=== PATIENT | male | born 1940 | race Caucasian/White ===

== ENCOUNTER 2016-10-13 21:27 | Emergency (ER) | payer MEDICARE, BC ==
[~2016-10-13] VITALS: Ht 188 cm; Wt 92.2 kg
[~2016-10-13 21:27] MED LIST: FEXO180 OR; LIBRAX PO; LOSA50TA PO; METO50CR PO; OMEP20TA PO; PERC5TAB12 PO; TAMS0.4C67 PO; ZOFR4TAB3 SL
[2016-10-13 21:36] VITALS: BP 171/86; PULSE 62; RESP 18; TEMP 98; O2SAT 18; O2SAT 95
[2016-10-13] MEDS ORDERED: PRAV80TA2 PO (22:09)
[2016-10-13] MEDS ORDERED: ASPI81CH CHEW (22:09)
[2016-10-13] MEDS ORDERED: AMLO5TAB2 PO (22:09)
[2016-10-13] MEDS ORDERED: FAMOTIDINE 20 MG/2 ML VIAL IV PUSH ONE (22:15)
[2016-10-13] MEDS ORDERED: ONDANSETRON HCL 4 MG/2 ML VIAL IV ONE (22:15)
[2016-10-13] MEDS ORDERED: SODIUM CHLOR 0.9% 1000 ML INJ 1,000 ML IV SCH (22:15)
[2016-10-13] MEDS ORDERED: PANTOPRAZOLE SODIUM 40 MG VIAL IVP ONE (22:15)
[2016-10-13] MEDS ORDERED: SODIUM CHLORIDE 0.9% FLUSH 10 ML FLUSH IV FLUSH PRN (22:15)
[2016-10-13] MEDS ORDERED: HYDROmorphone HCL PF 1 MG/ML VIAL IVP ONE (22:15)
--- NOTE | 2016-10-13 22:15 | PD ---
HPI Chief Complaint: GI Complaint Time Seen by Provider: 22:10 Travel History International Travel<30 days: No Contact w/Intl Traveler<30days: No Traveled to known affect area: No History of Present Illness HPI The patient is a 75-year-old male nausea and vomiting since 2:00 this morning. The patient gets frequent episodes of this and often needs hospitalization. He is from [place] and states she has been worked up extensively there for this problem but nothing has been found. 2 months ago they did a cholecystectomy thinking that this might stop these episodes. He denies any fever. He denies any dysuria, frequency or urgency. He denies vomiting any blood. He does have midline epigastric pain from the vomiting. He states they usually give him Zofran, Reglan and Dilaudid and this stops the cycle. He still has his appendix. PFSH Past Medical History AAA: Yes Arthritis: No Asthma: No Autoimmune Disease: No Heart Rhythm Problems: No Cardiovascular Problems: Yes (HX OF CHEST PAIN) High Cholesterol: Yes Chemotherapy: No Chest Pain: Yes Congestive Heart Failure: No COPD: No Cerebrovascular Accident: No Diabetes: No Endocrine: No Gastrointestinal Disorders: Yes (GALLSTONES) GERD: Yes Gout: Yes Genitourinary: No Hiatal Hernia: No Hypertension: Yes Immune Disorder: No Implanted Vascular Access Dvce: Yes Kidney Stones: Yes (TX FOR PREVENTING KIDNEY STONES) Musculoskeletal: No Neurologic: No Psychiatric: No Reproductive: No Respiratory: No Immunizations Current: Yes Migraines: No Radiation Therapy: No Renal Failure: No Seizures: No Sickle Cell Disease: No Sleep Apnea: No Thyroid Disease: No Ulcer: No Past Surgical History Abdominal Surgery: Yes (COLON RESCTION) AICD: No Arteriovenous Shunt: No Body Medical Devices: NUTS AND BOLTS IN BACK AND SPINE Cardiac Surgery: Yes (AAA REPAIR) Ear Surgery: No Endocrine Surgery: No Eye Surgery: No Genitourinary Surgery: No Gynecologic Surgery: No Insulin Pump: No Joint Replacement: No Oral Surgery: No Pacemaker: No Thoracic Surgery: No Other Surgery: Yes (AORTIC ANEURYSM) Social History Alcohol Use: Yes (2 DRINKS PER NIGHT(DENIES)) Tobacco Use: No Substance Use: No Allergies-Medications (Allergen,Severity, Reaction): Coded Allergies: levofloxacin (Verified Allergy, Severe, Anaphylaxis, 10/13/16) Reported Meds & Prescriptions Reported Meds & Active Scripts Active Prochlorperazine Maleate 10 Mg Tab 10 Mg PO Q6H PRN Flomax (Tamsulosin HCl) 0.4 Mg Cap 0.4 Mg PO DAILY Reported Librax (Chlordiazepoxide/Clidinium) 5-2.5 Mg Cap 1 Cap PO DAILY Pravastatin 80 Mg Tab 80 Mg PO DAILY Aspirin 81 Mg Chew 81 Mg CHEW DAILY Amlodipine (Amlodipine Besylate) 5 Mg Tab 5 Mg PO DAILY Omeprazole 20 mg (Omeprazole) 20 Mg Tab 20 Mg PO DAILY Zofran ODT (Ondansetron HCl) 4 Mg Tab 8 Mg SL BID PRN FOR NAUSEA/VOMITING Metoprolol Succinate ER 50 mg (Metoprolol Succinate) 50 Mg Tab 100 Mg PO DAILY Libby Allergy (Fexofenadine Hydrochloride) 180 Mg Tab 180 Mg OR DAILY Losartan Potassium 50 MG (Losartan Potassium) 50 Mg Tab 50 Mg PO DAILY Review of Systems Except as stated in HPI: all other systems reviewed are Neg Physical Exam Narrative GENERAL: The patient is moderately dehydrated appearing, alert, oriented 3 in moderate apparent distress with his vomiting. His vital signs show blood pressure 171/86 but are otherwise normal. SKIN: Focused skin assessment warm/dry. HEAD: Atraumatic. Normocephalic. EYES: Pupils equal and round. No scleral icterus. No injection or drainage. ENT: No nasal bleeding or discharge. Mucous membranes pink and moist. NECK: Trachea midline. No JVD. CARDIOVASCULAR: Regular rate and rhythm. No murmur appreciated. RESPIRATORY: No accessory muscle use. Clear to auscultation. Breath sounds equal bilaterally. GASTROINTESTINAL: Abdomen soft, with tenderness to direct palpation in the midline epigastrium, nondistended. Hepatic and splenic margins not palpable. No guarding or rebound is present. MUSCULOSKELETAL: No obvious deformities. No clubbing. No cyanosis. No edema. NEUROLOGICAL: Awake and alert. No obvious cranial nerve deficits. Motor grossly within normal limits. Normal speech. PSYCHIATRIC: Appropriate mood and affect; insight and judgment normal. Data Data Last Documented VS Vital Signs Date Time Temp Pulse Resp B/P (MAP) Pulse Ox O2 Delivery O2 Flow Rate FiO2 10/13/16 21:36 98.0 62 18 171/86 (114) 95 Orders Orders Electrocardiogram (10/13/16 21:41) Complete Blood Count With Diff (10/13/16 22:10) Comprehensive Metabolic Panel (10/13/16 22:10) Lipase (8/21/17 22:10) Urinalysis - C+S If Indicated (10/13/16 22:10) Iv Access Insert/Monitor (10/13/16 22:10) Ecg Monitoring (10/13/16 22:10) Oximetry (10/13/16 22:10) Pantoprazole Inj (Protonix Inj) (10/13/16 22:15) Sodium Chloride 0.9% Flush (Ns Flush) (10/13/16 22:15) Famotidine Inj (Pepcid Inj) (10/13/16 22:15) Ondansetron Inj (Zofran Inj) (10/13/16 22:15) Hydromorphone Pf Inj (Dilaudid Pf Inj) (10/13/16 22:15) Sodium Chlor 0.9% 1000 Ml Inj (Ns 1000 M (10/13/16 22:15) Labs Laboratory Tests Test 10/13/16 22:40 White Blood Count 10.6 TH/MM3 Red Blood Count 4.30 MIL/MM3 Hemoglobin 13.4 GM/DL Hematocrit 41.0 % Mean Corpuscular Volume 95.2 FL Mean Corpuscular Hemoglobin 31.0 PG Mean Corpuscular Hemoglobin Concent 32.6 % Red Cell Distribution Width 14.6 % Platelet Count 224 TH/MM3 Mean Platelet Volume 8.8 FL Neutrophils (%) (Auto) 85.0 % Lymphocytes (%) (Auto) 7.6 % Monocytes (%) (Auto) 6.6 % Eosinophils (%) (Auto) 0.5 % Basophils (%) (Auto) 0.3 % Neutrophils # (Auto) 9.0 TH/MM3 Lymphocytes # (Auto) 0.8 TH/MM3 Monocytes # (Auto) 0.7 TH/MM3 Eosinophils # (Auto) 0.1 TH/MM3 Basophils # (Auto) 0.0 TH/MM3 CBC Comment DIFF FINAL Differential Comment Blood Urea Nitrogen 21 MG/DL Creatinine 1.10 MG/DL Random Glucose 145 MG/DL Total Protein 7.6 GM/DL Albumin 3.7 GM/DL Calcium Level 9.2 MG/DL Alkaline Phosphatase 74 U/L Aspartate Amino Transf (AST/SGOT) 12 U/L Alanine Aminotransferase (ALT/SGPT) 24 U/L Total Bilirubin 0.6 MG/DL Sodium Level 136 MEQ/L Potassium Level 3.6 MEQ/L Chloride Level 104 MEQ/L Carbon Dioxide Level 24.2 MEQ/L Anion Gap 8 MEQ/L Estimat Glomerular Filtration Rate 65 ML/MIN Lipase 135 U/L [facility] Medical Decision Making Medical Screen Exam Complete: Yes Emergency Medical Condition: Yes Medical Record Reviewed: Yes Interpretation(s) The CBC is normal except for 85% neutrophils. The complete metabolic profile shows a BUN of 21, glucose 145 but is otherwise normal. The lipase is normal. Differential Diagnosis Recurrent vomiting of unknown etiology, pancreatitis, gastritis, gastroenteritis , colitis, dehydration, electrolyte disorder, renal insufficiency Narrative Course It is now 1112 and the patient has no nausea. He stands he feels "fine". The CBC is essentially normal. Diagnosis Primary Impression: Gastritis Additional Instructions: The patient has been observed here for 2 hours, he is walking around and he has no nausea. He will be given a prescription for Compazine. He already has 8 mg Zofran at home. He should follow-up with his primary care physician. Med/Other Pt SpecificInfo: Prescription(s) given Scripts Prochlorperazine Maleate (Prochlorperazine Maleate) 10 Mg Tab 10 MG PO Q6H Y for NAUSEA OR VOMITING, #30 TAB 0 Refills Prov: Puma Lomas MD 10/13/16 Disposition: 01 DISCHARGE HOME Condition: Stable Puma Lomas MD Oct 13, 2016 22:15
[2016-10-13 23:09] LABS: BASOPHIL % 0.3 % (0.0-2.0); EOSINOPHIL # 0.1 TH/MM3 (0-0.4); EOSINOPHIL % 0.5 % (0.0-4.0); HEMO FLAGS DIFF FINAL; LYMPH % 7.6 % (9.0-44.0); LYMPHOCYTE # 0.8 TH/MM3 (1.0-4.8); MEAN CELL VOLUME 95.2 FL (80.0-100.0); MEAN CORPUSCULAR HGB CONC 32.6 % (32.0-36.0); MONO % 6.6 % (0.0-8.0); PLATELET COUNT 224 TH/MM3 (150-450); RED CELL DISTRIBUTION WIDTH 14.6 % (11.6-17.2); WHITE BLOOD COUNT 10.6 TH/MM3 (4.0-11.0)
[2016-10-13 23:17] LABS: CHLORIDE 104 MEQ/L (98-107); POTASSIUM 3.6 MEQ/L (3.5-5.1); SODIUM (NA) 136 MEQ/L (136-145)
[2016-10-13 23:21] LABS: ANION GAP 8 MEQ/L (5-15); BICARBONATE 24.2 MEQ/L (21.0-32.0); BLOOD UREA NITROGEN 21 MG/DL (7-18)
[2016-10-13 23:24] LABS: ALT (GPT) 24 U/L (12-78); AST (GOT) 12 U/L (15-37); GLOMERULAR FILTRATION RATE 65 ML/MIN (>89)
[2016-10-13 23:25] LABS: TOTAL BILIRUBIN ADULT 0.6 MG/DL (0.2-1.0)
[2016-10-13] MEDS ORDERED: LIBRAX PO (23:26)
[2016-10-13 23:27] LABS: ALKALINE PHOSPHATASE 74 U/L (45-117)
[2016-10-13] MEDS ORDERED: PROC10TA PO (23:45)
[2016-10-14 00:17] VITALS: BP 131/66; TEMP 97.7
--- NOTE | 2016-10-14 13:51 | EKG ---
Date Performed: 10/13/2016 Time Performed: 21:46:54 PTAGE: 75 years EKG: Regular supraventricular rhythm that is probably Sinus rhythm with marked first degree AV block. ABNORMAL RHYTHM ECG PREVIOUS TRACING : 12/05/2013 14.31 Since the prior tracing, there has been a fairly marked inc rease in the MA interval, and the PVCs are no longer evident. There is otherwise no significant seria l change. DOCTOR: Shani Jimenez Interpretating Date/Time 10/14/2016 13:47:15
== END 2016-10-14 00:15 | disposition home or self-care (01) ==
LOC: PHED 21:27
DX: K29.70 Gastritis, unspecified, without bleeding (principal); I10 Essential (primary) hypertension
CPT/HCPCS: 80053; 83690; 85025; 93005; 96361; 96374; 96375; 99284; C9113; J1170; J2405; J7030

== ENCOUNTER 2016-10-14 13:25 | Emergency (ER) | payer MEDICARE, BC ==
[~2016-10-14] VITALS: Ht 188 cm; Wt 91.0 kg
[~2016-10-14 13:25] MED LIST changes: +AMLO5TAB2 PO; +ASPI81CH CHEW; -PERC5TAB12 PO; +PRAV80TA2 PO; +PROC10TA PO
[2016-10-14 13:34] VITALS: BP 185/98; PULSE 60; RESP 16; TEMP 97.6; O2SAT 98
[2016-10-14] MEDS ORDERED: SODIUM CHLOR 0.9% 1000 ML INJ 1,000 ML IV SCH (14:35)
--- NOTE | 2016-10-14 14:40 | PD ---
HPI Chief Complaint: GI Complaint Time Seen by Provider: 14:30 Travel History International Travel<30 days: No Contact w/Intl Traveler<30days: No Traveled to known affect area: No History of Present Illness HPI 75-year-old male with history of cyclical vomiting episodes, here for evaluation of nausea and dry heaves. The patient was seen in the emergency department yesterday evening for the same. He was treated and discharged home with antiemetics. Symptoms returned early this morning. The patient has had dry heaves throughout the day today consisting of nonbloody/clear mucus. He also complains of epigastric pain described as a pressure. He has had a cholecystectomy, AAA repair, and right inguinal hernia repair. He is from [place] and states that this has been worked up in the past without specific diagnosis. 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) Cardiovascular Problems: Yes (HX OF CHEST PAIN) High Cholesterol: Yes Chemotherapy: No Chest Pain: Yes Congestive Heart Failure: No COPD: No Cerebrovascular Accident: No Diabetes: Yes Patient Takes Glucophage: No Diminished Hearing: No Endocrine: No Gastrointestinal Disorders: Yes (GALLSTONES) GERD: Yes Gout: Yes Genitourinary: No Hiatal Hernia: No Hypertension: Yes Immune Disorder: No Implanted Vascular Access Dvce: Yes Kidney Stones: Yes ([place] FOR PREVENTING KIDNEY STONES) Musculoskeletal: No Neurologic: No Psychiatric: No Reproductive: No Respiratory: No Immunizations Current: Yes Migraines: No Radiation Therapy: No Renal Failure: No Seizures: No Sickle Cell Disease: No Sleep Apnea: No Thyroid Disease: No Ulcer: No Tetanus Vaccination: > 5 Years Influenza Vaccination: Yes Past Surgical History Abdominal Surgery: Yes (COLON RESCTION) AICD: No Arteriovenous Shunt: No Body Medical Devices: NUTS AND BOLTS IN BACK AND SPINE Cardiac Surgery: Yes (AAA REPAIR) Cholecystectomy: Yes Ear Surgery: No Endocrine Surgery: No Eye Surgery: No Genitourinary Surgery: No Gynecologic Surgery: No Insulin Pump: No Joint Replacement: No Oral Surgery: No Pacemaker: No Thoracic Surgery: No Other Surgery: Yes (AORTIC ANEURYSM) Social History Alcohol Use: No (2 DRINKS PER NIGHT(DENIES) Patient states " haven't had a drink in 2 yrs." ) Tobacco Use: No Substance Use: No Allergies-Medications (Allergen,Severity, Reaction): Coded Allergies: levofloxacin (Verified Allergy, Severe, Anaphylaxis, 10/14/16) Reported Meds & Prescriptions Reported Meds & Active Scripts Active Prochlorperazine Maleate 10 Mg Tab 10 Mg PO Q6H PRN Reported Librax (Chlordiazepoxide/Clidinium) 5-2.5 Mg Cap 1 Cap PO DAILY Pravastatin 80 Mg Tab 80 Mg PO DAILY Aspirin 81 Mg Chew 81 Mg CHEW DAILY Amlodipine (Amlodipine Besylate) 5 Mg Tab 5 Mg PO DAILY Review of Systems Except as stated in HPI: all other systems reviewed are Neg Physical Exam Narrative GENERAL: Well-developed, well-nourished, dry heaving into emesis bag. SKIN: Focused skin assessment warm/dry. HEAD: Atraumatic. Normocephalic. EYES: Pupils equal and round. No scleral icterus. No injection or drainage. ENT: Mucous membranes pink and dry. NECK: Trachea midline. No JVD. CARDIOVASCULAR: Regular rate and rhythm. RESPIRATORY: No accessory muscle use. Clear to auscultation. Breath sounds equal bilaterally. GASTROINTESTINAL: Abdomen soft, nondistended. Mild epigastric tenderness without peritoneal signs. Rest of abdomen is soft and nontender. Normal bowel sounds. MUSCULOSKELETAL: No obvious deformities. No clubbing. No cyanosis. No edema. NEUROLOGICAL: Awake and alert. No obvious cranial nerve deficits. Motor grossly within normal limits. Normal speech. PSYCHIATRIC: Appropriate mood and affect; insight and judgment normal. Data Data Last Documented VS Vital Signs Date Time Temp Pulse Resp B/P (MAP) Pulse Ox O2 Delivery O2 Flow Rate FiO2 10/14/16 15:10 95 Room Air 10/14/16 13:34 97.6 60 16 185/98 (127) Orders Orders Complete Blood Count With Diff (10/14/16 14:35) Comprehensive Metabolic Panel (10/14/16 14:35) Lipase (10/14/16 14:35) Prothrombin Time / Inr (Pt) (10/14/16 14:35) Act Partial Throm Time (Ptt) (10/14/16 14:35) Ct Abd/Pel W Iv Contrast(Rout) (10/14/16 14:35) Iv Access Insert/Monitor (10/14/16 14:35) Ecg Monitoring (10/14/16 14:35) Oximetry (10/14/16 14:35) Pantoprazole Inj (Protonix Inj) (10/14/16 14:45) Sodium Chlor 0.9% 1000 Ml Inj (Ns 1000 M (10/14/16 14:35) Sodium Chloride 0.9% Flush (Ns Flush) (10/14/16 14:45) Electrocardiogram (10/14/16 14:35) Ondansetron Inj (Zofran Inj) (10/14/16 14:45) Hydromorphone Pf Inj (Dilaudid Pf Inj) (10/14/16 14:45) Ckmb (Isoenzyme) Profile (10/14/16 14:35) Troponin I (10/14/16 14:35) Oral Contrast - Adult (10/14/16 14:52) Diatrizoate Liq ( Gastroview Liq) (10/14/16 15:02) Labs Laboratory Tests Test 10/14/16 14:55 White Blood Count 12.2 TH/MM3 Red Blood Count 4.35 MIL/MM3 Hemoglobin 13.8 GM/DL Hematocrit 40.7 % Mean Corpuscular Volume 93.6 FL Mean Corpuscular Hemoglobin 31.6 PG Mean Corpuscular Hemoglobin Concent 33.8 % Red Cell Distribution Width 14.6 % Platelet Count 195 TH/MM3 Mean Platelet Volume 8.4 FL Neutrophils (%) (Auto) 80.9 % Lymphocytes (%) (Auto) 9.3 % Monocytes (%) (Auto) 9.1 % Eosinophils (%) (Auto) 0.4 % Basophils (%) (Auto) 0.3 % Neutrophils # (Auto) 10.0 TH/MM3 Lymphocytes # (Auto) 1.1 TH/MM3 Monocytes # (Auto) 1.1 TH/MM3 Eosinophils # (Auto) 0.0 TH/MM3 Basophils # (Auto) 0.0 TH/MM3 CBC Comment DIFF FINAL Differential Comment Prothrombin Time 11.0 SEC Prothromb Time International Ratio 1.0 RATIO Activated Partial Thromboplast Time 25.8 SEC Blood Urea Nitrogen 19 MG/DL Creatinine 1.10 MG/DL Random Glucose 111 MG/DL Total Protein 8.3 GM/DL Albumin 3.9 GM/DL Calcium Level 9.2 MG/DL Alkaline Phosphatase 79 U/L Aspartate Amino Transf (AST/SGOT) 14 U/L Alanine Aminotransferase (ALT/SGPT) 25 U/L Total Bilirubin 0.8 MG/DL Sodium Level 134 MEQ/L Potassium Level 3.5 MEQ/L Chloride Level 100 MEQ/L Carbon Dioxide Level 26.1 MEQ/L Anion Gap 8 MEQ/L Estimat Glomerular Filtration Rate 65 ML/MIN Total Creatine Kinase 68 U/L Troponin I LESS THAN 0.02 NG/ML Lipase 115 U/L MDM Medical Decision Making Medical Screen Exam Complete: Yes Emergency Medical Condition: Yes Medical Record Reviewed: Yes Interpretation(s) EKG: Sinus, rate 60, leftward axis, first-degree AV block, no acute ischemic abnormality. Differential Diagnosis Cyclical vomiting, bowel obstruction, ACS, gastritis, pancreatitis, dehydration/ metabolic abnormality Narrative Course Vital signs show heart rate 60, blood pressure 185/98, pulse ox 98% on room air , oral temp of 97.6F. CBC shows WBC 12.2, hemoglobin 13.8, hematocrit 40.7, platelets 185, neutrophils 80.9%. CMP is essentially unremarkable. Lipase is 115. Cardiac enzymes are negative. At approximately 4:00 PM at the end of my shift the patient was signed out to oncoming provider pending CT abdomen pelvis and disposition. At time of signout , after the patient had received Zofran and Dilaudid, he is feeling much improved and is able to tolerate the oral contrast. I do not believe his symptoms are cardiac in nature. Thierno Leiva MD Oct 14, 2016 14:40
[2016-10-14] MEDS ORDERED: PANTOPRAZOLE SODIUM 40 MG VIAL IVP ONE (14:45)
[2016-10-14] MEDS ORDERED: HYDROmorphone HCL PF 1 MG/ML VIAL IV PUSH ONE (14:45)
[2016-10-14] MEDS ORDERED: ONDANSETRON HCL 4 MG/2 ML VIAL IV PUSH ONE (14:45)
[2016-10-14] MEDS ORDERED: SODIUM CHLORIDE 0.9% FLUSH 10 ML FLUSH IV FLUSH PRN (14:45)
[2016-10-14] MEDS ORDERED: DIATRIZOATE MEGLUM/DIATRIZOATE SOD 9 ML CUP ONE (15:02)
[2016-10-14 15:10] VITALS: O2SAT 95
[2016-10-14 15:11] LABS: BASOPHIL % 0.3 % (0.0-2.0); EOSINOPHIL % 0.4 % (0.0-4.0); HEMATOCRIT 40.7 % (39.0-51.0); HEMO FLAGS DIFF FINAL; LYMPH % 9.3 % (9.0-44.0); LYMPHOCYTE # 1.1 TH/MM3 (1.0-4.8); MEAN CELL VOLUME 93.6 FL (80.0-100.0); MEAN CORPUSCULAR HEMOGLOBIN 31.6 PG (27.0-34.0); MEAN CORPUSCULAR HGB CONC 33.8 % (32.0-36.0); MONO % 9.1 % (0.0-8.0); NEUT % 80.9 % (16.0-70.0); PLATELET COUNT 195 TH/MM3 (150-450); RED BLOOD COUNT 4.35 MIL/MM3 (4.50-5.90); RED CELL DISTRIBUTION WIDTH 14.6 % (11.6-17.2); WHITE BLOOD COUNT 12.2 TH/MM3 (4.0-11.0)
[2016-10-14 15:22] LABS: CHLORIDE 100 MEQ/L (98-107); POTASSIUM 3.5 MEQ/L (3.5-5.1); SODIUM (NA) 134 MEQ/L (136-145)
[2016-10-14 15:26] LABS: ANION GAP 8 MEQ/L (5-15); BICARBONATE 26.1 MEQ/L (21.0-32.0); BLOOD UREA NITROGEN 19 MG/DL (7-18)
[2016-10-14 15:28] LABS: ALT (GPT) 25 U/L (12-78); AST (GOT) 14 U/L (15-37)
[2016-10-14 15:29] LABS: GLOMERULAR FILTRATION RATE 65 ML/MIN (>89)
[2016-10-14 15:30] LABS: TOTAL BILIRUBIN ADULT 0.8 MG/DL (0.2-1.0)
[2016-10-14 15:31] LABS: ALKALINE PHOSPHATASE 79 U/L (45-117)
[2016-10-14 15:35] LABS: APTT (PATIENT) 25.8 SEC (24.3-30.1)
[2016-10-14 15:43] LABS: CREATINE KINASE 68 U/L (39-308)
[2016-10-14] MEDS ORDERED: IOHEXOL 350 MG/ML 10 ML VIAL (for RAD DIAG) IVCONTRAST ONE (16:39)
[2016-10-14 16:45] VITALS: BP 151/86; PULSE 70; RESP 16; O2SAT 95
--- NOTE | 2016-10-14 16:48 | RADRPT ---
EXAM DATE/TIME: 10/14/2016 16:27 [facility] COMPARISON: CT ABDOMEN & PELVIS W CONTRAST, May 12, 2013, 2:59. INDICATIONS : Chronic nausea and vomiting. Evaluate for obstruction. IV CONTRAST: 95 cc Omnipaque 350 (iohexol) IV ORAL CONTRAST: Prescribed oral contrast ingested. RADIATION DOSE: 19.98 CTDIvol (mGy) MEDICAL HISTORY : Hypertension. Gastroesophageal reflux disease. Aneurysm, abdominal. SURGICAL HISTORY : Abdominal aortic aneurysm repair. Fusion, lumbar.Colon resection.Cholecystectomy. Left hip surgery. ENCOUNTER: Initial ACUITY: 4 - 6 days PAIN SCALE: 0/10 LOCATION: abdomen TECHNIQUE: Volumetric scanning of the abdomen and pelvis was performed. Using automated exposure control and ad justment of the mA and/or kV according to patient size, radiation dose was kept as low as reasonably achievable to obtain optimal diagnostic quality images. DICOM format image data is available electro nically for review and comparison. FINDINGS: There is atelectasis at the lung bases. There is a stable noncalcified right lower lobe pulmonary nod ule. No pleural or pericardial effusions are seen. Cholecystectomy clips are present. The liver, sple en, pancreas, adrenal glands, left kidney are unremarkable. Right lower pole 2.7 cm simple cyst. The patient has had previous endovascular stent graft repair of infrarenal abdominal aortic aneurysm. The proximal attachment is noted at the level of the origin of the right main renal artery. The aorta me asures 3.7 x 3.5 m in AP and transverse dimension. There is dilatation of the right common iliac julio ry up to 2 point centimeters, left common iliac artery up to 2.5 cm with common iliac artery stents i dentified. Urinary bladder is unremarkable. Prostatic calcifications are noted. There is diverticulos is of the sigmoid and descending colon as well as the visualized distal transverse colon. A staple li ne is identified and the patient is status post right hemicolectomy. No evidence of bowel obstruction . No adenopathy. 2 mm left upper pole renal calculus. Degenerative changes of the spine. Left hip art hroplasty. CONCLUSION: 1. Partial colectomy. 2. Diverticulosis without diverticulitis. 3. 2 mm nonobstructing left upper pole renal calculus. 4. Right renal cyst, simple in appearance. 5. No evidence of bowel obstruction. 6. Stent graft repair of abdominal aortic aneurysm with dilatation of the aorta and common iliac julio esth. Jaya A. Octavio, MD on October 14, 2016 at 16:43 Board Certified Radiologist. This report was verified electronically.
--- NOTE | 2016-10-14 17:26 | PD ---
Physical Exam Narrative Patient signed out to me by Dr. Leiva. Please see his documentation for complete history and details. Briefly, patient is a 75-year-old male comes in complaining of nausea and vomiting. Patient has had this in the past, and has issues with cyclical vomiting. He was seen here yesterday and discharged home, but came back because the nausea and vomiting continued. On exam, his abdomen is soft and nontender. Data Data Last Documented VS Vital Signs Date Time Temp Pulse Resp B/P (MAP) Pulse Ox O2 Delivery O2 Flow Rate FiO2 10/14/16 16:45 70 16 151/86 (107) 95 Room Air 10/14/16 13:34 97.6 Orders Orders Complete Blood Count With Diff (10/14/16 14:35) Comprehensive Metabolic Panel (10/14/16 14:35) Lipase (10/14/16 14:35) Prothrombin Time / Inr (Pt) (10/14/16 14:35) Act Partial Throm Time (Ptt) (10/14/16 14:35) Ct Abd/Pel W Iv Contrast(Rout) (10/14/16 14:35) Iv Access Insert/Monitor (10/14/16 14:35) Ecg Monitoring (10/14/16 14:35) Oximetry (10/14/16 14:35) Pantoprazole Inj (Protonix Inj) (10/14/16 14:45) Sodium Chlor 0.9% 1000 Ml Inj (Ns 1000 M (10/14/16 14:35) Sodium Chloride 0.9% Flush (Ns Flush) (10/14/16 14:45) Electrocardiogram (10/14/16 14:35) Ondansetron Inj (Zofran Inj) (10/14/16 14:45) Hydromorphone Pf Inj (Dilaudid Pf Inj) (10/14/16 14:45) Ckmb (Isoenzyme) Profile (10/14/16 14:35) Troponin I (10/14/16 14:35) Oral Contrast - Adult (10/14/16 14:52) Diatrizoate Liq ( Gastroserene Jaquezq) (10/14/16 15:02) Iohexol 350 Inj (Omnipaque 350 Inj) (10/14/16 16:39) Labs Laboratory Tests Test 10/14/16 14:55 White Blood Count 12.2 TH/MM3 Red Blood Count 4.35 MIL/MM3 Hemoglobin 13.8 GM/DL Hematocrit 40.7 % Mean Corpuscular Volume 93.6 FL Mean Corpuscular Hemoglobin 31.6 PG Mean Corpuscular Hemoglobin Concent 33.8 % Red Cell Distribution Width 14.6 % Platelet Count 195 TH/MM3 Mean Platelet Volume 8.4 FL Neutrophils (%) (Auto) 80.9 % Lymphocytes (%) (Auto) 9.3 % Monocytes (%) (Auto) 9.1 % Eosinophils (%) (Auto) 0.4 % Basophils (%) (Auto) 0.3 % Neutrophils # (Auto) 10.0 TH/MM3 Lymphocytes # (Auto) 1.1 TH/MM3 Monocytes # (Auto) 1.1 TH/MM3 Eosinophils # (Auto) 0.0 TH/MM3 Basophils # (Auto) 0.0 TH/MM3 CBC Comment DIFF FINAL Differential Comment Prothrombin Time 11.0 SEC Prothromb Time International Ratio 1.0 RATIO Activated Partial Thromboplast Time 25.8 SEC Blood Urea Nitrogen 19 MG/DL Creatinine 1.10 MG/DL Random Glucose 111 MG/DL Total Protein 8.3 GM/DL Albumin 3.9 GM/DL Calcium Level 9.2 MG/DL Alkaline Phosphatase 79 U/L Aspartate Amino Transf (AST/SGOT) 14 U/L Alanine Aminotransferase (ALT/SGPT) 25 U/L Total Bilirubin 0.8 MG/DL Sodium Level 134 MEQ/L Potassium Level 3.5 MEQ/L Chloride Level 100 MEQ/L Carbon Dioxide Level 26.1 MEQ/L Anion Gap 8 MEQ/L Estimat Glomerular Filtration Rate 65 ML/MIN Total Creatine Kinase 68 U/L Troponin I LESS THAN 0.02 NG/ML Lipase 115 U/L [facility] Supervised Visit with RONALD: No Narrative Course Labs, including troponin show no acute abnormalities. CT of the abdomen and pelvis were performed and show dilatation of the right and left common iliac arteries to 2 and 2.5 cm respectively. The aortic aneurysm that was repaired measures 3.7 x 3.5, which is only slightly larger than the previous CT when it measured 3.3. Patient informed of results. He will follow up with his vascular surgeon. He is advised of things to watch out for and when to return to the ED. He says he is feeling much better and he would like to go home. Diagnosis Primary Impression: Nausea & vomiting Qualified Codes: R11.2 - Nausea with vomiting, unspecified Patient Instructions: Acute Nausea and Vomiting (ED), General Instructions Additional Instruction: Follow up with her vascular surgeon. Drink plenty of fluids. Return to the ED as needed for any worsening symptoms. Disposition: 01 DISCHARGE HOME Condition: Stable Mary Damian MD Oct 14, 2016 17:26
--- NOTE | 2016-10-15 19:59 | EKG ---
Date Performed: 10/14/2016 Time Performed: 14:48:11 PTAGE: 75 years EKG: Sinus rhythm WITH FIRST DEGREE AV BLOCK ABNORMAL ECG PREVIOUS TRACING : 10/13/2016 21.46 Compared to prior tracing no significant change DOCTOR: Zeynep Browne Interpretating Date/Time 10/15/2016 19:57:27
== END 2016-10-14 17:35 | disposition home or self-care (01) ==
LOC: PHED 13:25
DX: G43.A0 Cyclical vomiting, in migraine, not intractable (principal); R10.13 Epigastric pain; I10 Essential (primary) hypertension
CPT/HCPCS: 74177; 80053; 82550; 83690; 84484; 85025; 85610; 85730; 93005; 96361; 96374; 96375; 99285; C9113; J1170; J2405; J7030; Q9963; Q9967

== ENCOUNTER 2016-10-20 08:10 | Emergency (ER) | payer MEDICARE, BC ==
[~2016-10-20] VITALS: Ht 188 cm; Wt 90.4 kg
[~2016-10-20 08:10] MED LIST changes: -FEXO180 OR; -LOSA50TA PO; -METO50CR PO; -OMEP20TA PO; -TAMS0.4C67 PO; -ZOFR4TAB3 SL
[2016-10-20 08:17] VITALS: BP 165/80; PULSE 64; RESP 18; TEMP 98; O2SAT 95
--- NOTE | 2016-10-20 08:51 | PD ---
HPI Chief Complaint: GI Complaint Time Seen by Provider: 08:19 Travel History International Travel<30 days: No Contact w/Intl Traveler<30days: No Traveled to known affect area: No History of Present Illness HPI Patient is a 75-year-old male with a history of chronic nausea and vomiting presents emergency department for evaluation of recurrent nausea and vomiting. Patient states she's been throwing up for approximately 2 weeks. He states that approximately a year ago a physician put him on Librax and Zofran and he was doing very well with Librax for a long time however the physician [facility] took him off of the medicine and then he had a recurrence of symptoms. Afterwards he was placed back on Librax but this did not control his nausea and vomiting. He was then seen by psychiatrist and placed on Librium as well as Cymbalta. He stopped taking these a few weeks ago because he was becoming very sedate. He states that ever since then he's been having nausea and vomiting. This is his third presentation to this hospital this month for the same. She states she has not yet followed up with his physician in [place] patient is not going home until early October. States he woke up this morning dry heaving mucus only no blood and no bile. Denies any fevers. 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) Cardiovascular Problems: Yes (HX OF CHEST PAIN) High Cholesterol: Yes Chemotherapy: No Chest Pain: Yes Congestive Heart Failure: No COPD: No Cerebrovascular Accident: No Diabetes: Yes Patient Takes Glucophage: Yes Diminished Hearing: No Endocrine: No Gastrointestinal Disorders: Yes (GALLSTONES) GERD: Yes Gout: Yes Genitourinary: No Hiatal Hernia: No Hypertension: Yes Immune Disorder: No Implanted Vascular Access Dvce: Yes Kidney Stones: Yes (TX FOR PREVENTING KIDNEY STONES) Musculoskeletal: No Neurologic: No Psychiatric: No Reproductive: No Respiratory: No Immunizations Current: Yes Migraines: No Radiation Therapy: No Renal Failure: No Seizures: No Sickle Cell Disease: No Sleep Apnea: No Thyroid Disease: No Ulcer: No Past Surgical History Abdominal Surgery: Yes (COLON RESECTION) AICD: No Arteriovenous Shunt: No Body Medical Devices: NUTS AND BOLTS IN BACK AND SPINE Cardiac Surgery: Yes (AAA REPAIR) Cholecystectomy: Yes Ear Surgery: No Endocrine Surgery: No Eye Surgery: No Genitourinary Surgery: No Gynecologic Surgery: No Insulin Pump: No Joint Replacement: No Oral Surgery: No Pacemaker: No Thoracic Surgery: No Other Surgery: Yes (AORTIC ANEURYSM) Social History Alcohol Use: No Tobacco Use: No Substance Use: No Allergies-Medications (Allergen,Severity, Reaction): Coded Allergies: levofloxacin (Verified Allergy, Severe, Anaphylaxis, 10/20/16) Reported Meds & Prescriptions Reported Meds & Active Scripts Active Prochlorperazine Maleate 10 Mg Tab 10 Mg PO Q6H PRN Reported Librax (Chlordiazepoxide/Clidinium) 5-2.5 Mg Cap 1 Cap PO DAILY Pravastatin 80 Mg Tab 80 Mg PO DAILY Aspirin 81 Mg Chew 81 Mg CHEW DAILY Amlodipine (Amlodipine Besylate) 5 Mg Tab 5 Mg PO DAILY Review of Systems Except as stated in HPI: all other systems reviewed are Neg Physical Exam Narrative GENERAL: Well-developed well-nourished, exhibiting intermittent dry heaves. SKIN: Focused skin assessment warm/dry. HEAD: Atraumatic. Normocephalic. EYES: Pupils equal and round. No scleral icterus. No injection or drainage. ENT: No nasal bleeding or discharge. Mucous membranes pink and moist. NECK: Trachea midline. No JVD. CARDIOVASCULAR: Regular rate and rhythm. No murmur appreciated. RESPIRATORY: No accessory muscle use. Clear to auscultation. Breath sounds equal bilaterally. GASTROINTESTINAL: Abdomen soft, non-tender, nondistended. Hepatic and splenic margins not palpable. No rebound no percussive tenderness. Abdomen is actually quite benign. MUSCULOSKELETAL: No obvious deformities. No clubbing. No cyanosis. No edema. NEUROLOGICAL: Awake and alert. No obvious cranial nerve deficits. Motor grossly within normal limits. Normal speech. PSYCHIATRIC: Appropriate mood and affect; insight and judgment normal. Data Data Last Documented VS Vital Signs Date Time Temp Pulse Resp B/P (MAP) Pulse Ox O2 Delivery O2 Flow Rate FiO2 10/20/16 11:55 75 16 152/82 (105) 94 10/20/16 10:55 Nasal Cannula 2.00 10/20/16 08:17 98.0 Orders Orders Complete Blood Count With Diff (10/20/16 08:47) Comprehensive Metabolic Panel (10/20/16 08:47) Lipase (10/20/16 08:47) Iv Access Insert/Monitor (10/20/16 08:47) Ecg Monitoring (10/20/16 08:47) Oximetry (10/20/16 08:47) Hydromorphone Pf Inj (Dilaudid Pf Inj) (10/20/16 09:00) Ondansetron Inj (Zofran Inj) (10/20/16 09:00) Pantoprazole Inj (Protonix Inj) (10/20/16 09:00) Sodium Chloride 0.9% Flush (Ns Flush) (10/20/16 09:00) Electrocardiogram (10/20/16 08:47) Metoclopramide Inj (Reglan Inj) (10/20/16 11:00) Labs Laboratory Tests Test 10/20/16 09:00 White Blood Count 13.4 TH/MM3 Red Blood Count 4.39 MIL/MM3 Hemoglobin 13.4 GM/DL Hematocrit 41.3 % Mean Corpuscular Volume 94.2 FL Mean Corpuscular Hemoglobin 30.5 PG Mean Corpuscular Hemoglobin Concent 32.4 % Red Cell Distribution Width 14.4 % Platelet Count 197 TH/MM3 Mean Platelet Volume 8.9 FL Neutrophils (%) (Auto) 84.8 % Lymphocytes (%) (Auto) 6.7 % Monocytes (%) (Auto) 6.7 % Eosinophils (%) (Auto) 1.6 % Basophils (%) (Auto) 0.2 % Neutrophils # (Auto) 11.4 TH/MM3 Lymphocytes # (Auto) 0.9 TH/MM3 Monocytes # (Auto) 0.9 TH/MM3 Eosinophils # (Auto) 0.2 TH/MM3 Basophils # (Auto) 0.0 TH/MM3 CBC Comment DIFF FINAL Differential Comment Blood Urea Nitrogen 23 MG/DL Creatinine 1.20 MG/DL Random Glucose 171 MG/DL Total Protein 8.1 GM/DL Albumin 3.6 GM/DL Calcium Level 9.0 MG/DL Alkaline Phosphatase 75 U/L Aspartate Amino Transf (AST/SGOT) 8 U/L Alanine Aminotransferase (ALT/SGPT) 17 U/L Total Bilirubin 0.8 MG/DL Sodium Level 140 MEQ/L Potassium Level 3.9 MEQ/L Chloride Level 105 MEQ/L Carbon Dioxide Level 24.7 MEQ/L Anion Gap 10 MEQ/L Estimat Glomerular Filtration Rate 59 ML/MIN Lipase 194 U/L [facility] Medical Decision Making Medical Screen Exam Complete: Yes Emergency Medical Condition: Yes Interpretation(s) EKG shows sinus first degree heart block with a OK interval of 334, left axis deviation, normal R-wave progression. No concerning ST segment changes. Intervals otherwise within normal limits. This is an abnormal EKG. no change from Oct 14, 2016. Differential Diagnosis Acute on chronic nausea and vomiting, acute abdomen unlikely, cholecystitis unlikely, colitis, gastritis, gastroenteritis. Narrative Course Patient roomed in emergency department, certainly I do not think that there is any withdrawal going on here. The patient states she's been off those medications for some time. His basic labs do show minimal elevation of white blood cell count 13,000 with a left shift, this is minimally elevated over his last levels count of just over 12,000. Given this the patient was offered CAT scan but in my opinion with a benign abdomen CAT scan was likely to be having undue radiation exposure given his CAT scans in the recent past. He is beginning to feel better with Zofran and small dose of Dilaudid. 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 Diagnosis Primary Impression: Nausea & vomiting Disposition: 01 DISCHARGE HOME Condition: Stable Boogie Coronel MD Oct 20, 2016 08:51
[2016-10-20] MEDS ORDERED: SODIUM CHLORIDE 0.9% FLUSH 10 ML FLUSH IV FLUSH PRN (09:00)
[2016-10-20] MEDS ORDERED: PANTOPRAZOLE SODIUM 40 MG VIAL IVP ONE (09:00)
[2016-10-20] MEDS ORDERED: HYDROmorphone HCL PF 2 MG/ML VIAL IVS ONE (09:00)
[2016-10-20] MEDS ORDERED: ONDANSETRON HCL 4 MG/2 ML VIAL IVP ONE (09:00)
[2016-10-20 09:19] LABS: AUTOMATED NEUTROPHIL # 11.4 TH/MM3 (1.8-7.7); BASOPHIL % 0.2 % (0.0-2.0); EOSINOPHIL # 0.2 TH/MM3 (0-0.4); EOSINOPHIL % 1.6 % (0.0-4.0); HEMATOCRIT 41.3 % (39.0-51.0); LYMPH % 6.7 % (9.0-44.0); LYMPHOCYTE # 0.9 TH/MM3 (1.0-4.8); MEAN CELL VOLUME 94.2 FL (80.0-100.0); MEAN CORPUSCULAR HEMOGLOBIN 30.5 PG (27.0-34.0); MEAN CORPUSCULAR HGB CONC 32.4 % (32.0-36.0); MONO % 6.7 % (0.0-8.0); NEUT % 84.8 % (16.0-70.0); PLATELET COUNT 197 TH/MM3 (150-450); RED BLOOD COUNT 4.39 MIL/MM3 (4.50-5.90); RED CELL DISTRIBUTION WIDTH 14.4 % (11.6-17.2); WHITE BLOOD COUNT 13.4 TH/MM3 (4.0-11.0)
[2016-10-20 09:21] VITALS: O2SAT 93
[2016-10-20 09:22] LABS: HEMO FLAGS DIFF FINAL
[2016-10-20 09:53] LABS: BICARBONATE 24.7 MEQ/L (21.0-32.0)
[2016-10-20 09:56] LABS: ALT (GPT) 17 U/L (12-78); AST (GOT) 8 U/L (15-37); GLOMERULAR FILTRATION RATE 59 ML/MIN (>89)
[2016-10-20 09:58] LABS: TOTAL BILIRUBIN ADULT 0.8 MG/DL (0.2-1.0)
[2016-10-20 09:59] LABS: ALKALINE PHOSPHATASE 75 U/L (45-117)
[2016-10-20 10:01] LABS: ANION GAP 10 MEQ/L (5-15); CHLORIDE 105 MEQ/L (98-107); POTASSIUM 3.9 MEQ/L (3.5-5.1); SODIUM (NA) 140 MEQ/L (136-145)
[2016-10-20 10:09] LABS: BLOOD UREA NITROGEN 23 MG/DL (7-18)
[2016-10-20 10:55] VITALS: BP 140/82; PULSE 61; RESP 16; O2SAT 98
[2016-10-20] MEDS ORDERED: METOCLOPRAMIDE HCL 10 MG/2 ML VIAL IV PUSH ONE (11:00)
[2016-10-20 11:55] VITALS: BP 152/82
--- NOTE | 2016-10-20 14:33 | EKG ---
Date Performed: 10/20/2016 Time Performed: 09:01:52 PTAGE: 75 years EKG: ECTOPIC ATRIAL RHYTHM WITH FIRST DEGREE AV BLOCK BORDERLINE LEFT AXIS DEVIATION ABNORMAL EC G PREVIOUS TRACING : 10/14/2016 14.48 Compared to prior tracing no significant change DOCTOR: Ivan Fernandez Interpretating Date/Time 10/20/2016 14:27:20
== END 2016-10-20 12:03 | disposition home or self-care (01) ==
LOC: PHED 08:10
DX: R11.2 Nausea with vomiting, unspecified (principal); I10 Essential (primary) hypertension; E11.9 Type 2 diabetes mellitus without complications
CPT/HCPCS: 80053; 83690; 85025; 93005; 96374; 96375; 99284; C9113; J1170; J2405; J2765